=== PATIENT | male | born 1955 | race Caucasian/White ===

== ENCOUNTER 2019-11-08 09:59 | Inpatient (IN) | payer BC ==
[~2019-11-08] VITALS: Ht 172.7 cm; Wt 98.0 kg
[2019-11-08] MEDS ORDERED: SODIUM CHLORIDE 0.9% 1,000 ML IV ONE ×2 (10:19→14:32)
[2019-11-08] MEDS ORDERED: ONDANSETRON HCL 4MG/2ML INJ IV STA (10:19)
[2019-11-08] MEDS ORDERED: KETOROLAC 30MG/ML VIAL IV STA (10:19)
[2019-11-08 11:18] LABS: BASOPHILS % 0.3 % (0.0-2.0); EOSINOPHILS % 1.9 % (0.0-5.0); HEMATOCRIT. 47.2 % (42.0-52.0); LYMPHOCYTES % 18.4 % (20.0-50.0); MEAN CORPUSCULAR HEMOGLOBIN 29.6 pg (28.0-32.0); MEAN CORPUSCULAR VOLUME 87.2 fL (80.0-94.0); MEAN PLATELET VOLUME 8.4 fl (7.4-10.4); MONOCYTES % 11.4 % (2.0-8.0); PLATELET 379 x1000/uL (130-400); RED BLOOD CELL COUNT 5.41 mill/uL (4.7-6.1); RED CELL DISTRIBUTION WIDTH 13.1 % (11.6-14.6)
[2019-11-08 11:19] LABS: CHLORIDE 102 mEq/L (98-107)
[2019-11-08 11:31] LABS: CLARITY URINE CLEAR (CLEAR); COLOR URINE DARK YELLOW (YELLOW); KETONES URINE TRACE (NEGATIVE); LEUKOCYTE ESTERASE URINE NEGATIVE (NEGATIVE); NITRITE URINE NEGATIVE (NEGATIVE); OCCULT BLOOD URINE NEGATIVE (NEGATIVE); PH URINE 5.5 (4.5-8.0); PROTEIN URINE 1+ (NEGATIVE); SPECIFIC GRAVITY URINE 1.026 (1.005-1.030)
[2019-11-08] MEDS ORDERED: AZITHROMYCIN 500 MG in DEXT 5% WATER 250 ML IV ONE (11:45)
[2019-11-08] MEDS ORDERED: CEFTRIAXONE 1 G PREMIX 50 ML IV ONE (11:45)
[2019-11-08 12:16] LABS: D-DIMER 0.82 mg/L FEU (<0.50); PARTIAL THROMBOPLASTIN TIME 30.2 sec (23.4-31.0); PROTHROMBIN TIME 10.8 sec (9.6-11.0)
[2019-11-08] MEDS ORDERED: ENOXAPARIN 80MG/0.8ML SYR SUBCUT ONE (13:00)
[2019-11-08] MEDS ORDERED: DOCUSATE SODIUM 100MG CAPSULE PO PRN (15:30)
[2019-11-08] MEDS ORDERED: ACETAMINOPHEN 325MG TABLET PO PRN (15:30)
[2019-11-08] MEDS ORDERED: HYDRALAZINE 20MG/ML VIAL IV PRN (15:30)
[2019-11-08] MEDS ORDERED: GUAIFENESIN 200MG/10ML SUGAR FREE UDC PO PRN (15:30)
[2019-11-08] MEDS ORDERED: NA PHOS,M-B/NA PHOS,DI-BA ENEMA 118ML PR PRN (15:30)
[2019-11-08] MEDS ORDERED: LORAZEPAM 0.5MG TABLET PO PRN (15:30)
[2019-11-08] MEDS ORDERED: ONDANSETRON HCL 4MG/2ML INJ IV PRN (15:30)
[2019-11-08] MEDS ORDERED: DIPHENHYDRAMINE 50MG/ML VIAL IV PRN (15:30)
[2019-11-08] MEDS ORDERED: CLONIDINE 0.1MG TABLET PO PRN (15:30)
[2019-11-08] MEDS ORDERED: HYDROCODONE/ACETAMINOPHEN 5/325MG TABLET PO PRN (15:30)
[2019-11-08] MEDS ORDERED: IPRATROPIUM/ALBUTEROL 0.5-3(2.5)MG/3ML NEB NEB PRN (15:30)
[2019-11-08] MEDS ORDERED: MAGNESIUM/ALUMINUM HYDROXIDE/SIMETHICONE 30ML UDC PO PRN (15:30)
[2019-11-08] MEDS ORDERED: ACETAMINOPHEN 650MG SUPP PR PRN (15:30)
[2019-11-08 15:52] LABS: BG BASE EXCESS -2.7 mmol/L (-2.0-2.0); BG CARBOXYHEMOGLOBIN 0.8 % (0.5-1.5); BG DEOXYHEMOGLOBIN 5.6 % (0.0-5.0); BG FRACTION INSPIRED OXYGEN 21; BG HCO3 ACT 20.7 mmol/L (22.0-26.0); BG METHEMOGLOBIN 0.3 % (0.0-1.5); BG OXYGEN SATURATION 94.3 % (92.0-98.5); BG OXYHEMOGLOBIN 93.3 % (94.0-97.0); BG PCO2 32.2 mmHg (35.0-45.0); BG PH 7.425 (7.350-7.450); BG PO2 69.9 mmHg (75.0-100.0); BG SAMPLE SITE RIGHT BRACHIAL; BG TOTAL HEMOGLOBIN 15.5 g/dL (12.0-18.0); BG VENT MODE ROOM AIR
[2019-11-08 20:40] VITALS: BP 134/81
[2019-11-08] MEDS: FAMOTIDINE 20MG TABLET PO SCH (21:57)
[2019-11-08] MEDS: ENOXAPARIN 80MG/0.8ML SYR SUBCUT SCH (22:03)
[2019-11-09] VITALS: BP 114/62
[2019-11-09 04:00] VITALS: BP 119/80
[2019-11-09 07:58] LABS: BASOPHILS % 0.4 % (0.0-2.0); EOSINOPHILS % 2.7 % (0.0-5.0); HEMATOCRIT. 43.4 % (42.0-52.0); HEMOGLOBIN. 14.8 g/dL (14.0-18.0); LYMPHOCYTES % 15.7 % (20.0-50.0); MEAN CORPUSCULAR HEMOGLOBIN 29.7 pg (28.0-32.0); MEAN CORPUSCULAR VOLUME 87.1 fL (80.0-94.0); MEAN PLATELET VOLUME 8.2 fl (7.4-10.4); MONOCYTES % 12.9 % (2.0-8.0); NEUTROPHILS % 68.3 % (40.0-76.0); PLATELET 375 x1000/uL (130-400); RED BLOOD CELL COUNT 4.99 mill/uL (4.7-6.1); RED CELL DISTRIBUTION WIDTH 13.1 % (11.6-14.6)
[2019-11-09 08:00] VITALS: BP 107/56
[2019-11-09 08:00] LABS: CHLORIDE 109 mEq/L (98-107)
[2019-11-09 08:20] LABS: T4 FREE 1.08 ng/dL (0.76-1.46)
[2019-11-09 08:23] LABS: HDL CHOLESTEROL 28 mg/dL (40-59); LDL CHOLESTEROL 113 mg/dL (5-100)
[2019-11-09] MEDS ORDERED: ENOXAPARIN 40MG/0.4ML SYR SUBCUT SCH (09:00)
[2019-11-09] MEDS ORDERED: PNEUMOCOCCAL 23-VAL P-SAC VAC 0.5 ML IM ONE (09:00)
[2019-11-09] MEDS ORDERED: AZITHROMYCIN 500 MG in DEXT 5% WATER 250 ML IV SCH (09:00)
[2019-11-09] MEDS: ENOXAPARIN 80MG/0.8ML SYR SUBCUT SCH (09:29)
[2019-11-09] MEDS: AZITHROMYCIN 500 MG in DEXT 5% WATER 250 ML IV SCH (09:31)
[2019-11-09 10:29] LABS: BG BASE EXCESS -2.6 mmol/L (-2.0-2.0); BG CARBOXYHEMOGLOBIN 0.4 % (0.5-1.5); BG DEOXYHEMOGLOBIN 4.6 % (0.0-5.0); BG FRACTION INSPIRED OXYGEN 21; BG HCO3 ACT 20.7 mmol/L (22.0-26.0); BG METHEMOGLOBIN 0.3 % (0.0-1.5); BG OXYGEN SATURATION 95.4 % (92.0-98.5); BG OXYHEMOGLOBIN 94.7 % (94.0-97.0); BG PCO2 32.3 mmHg (35.0-45.0); BG PH 7.425 (7.350-7.450); BG PO2 76.7 mmHg (75.0-100.0); BG SAMPLE SITE RIGHT RADIAL; BG TOTAL HEMOGLOBIN 15.4 g/dL (12.0-18.0); BG VENT MODE ROOM AIR
[2019-11-09 12:00] VITALS: BP 124/73
[2019-11-09] MEDS ORDERED: CEFTRIAXONE 1 G PREMIX 50 ML IV SCH (12:00)
[2019-11-09] MEDS: CEFTRIAXONE 1,000 MG in DEXTROSE 5% WATER 50 ML IV SCH (14:28)
[2019-11-09 16:00] VITALS: BP 118/79
[2019-11-09 20:00] VITALS: BP 109/78
[2019-11-09] MEDS: FAMOTIDINE 20MG TABLET PO SCH (21:03)
[2019-11-09] MEDS: ENOXAPARIN 100MG/ML SYR SUBCUT SCH (21:04)
[2019-11-10] VITALS: BP 119/78
[2019-11-10 04:00] VITALS: BP 127/78
[2019-11-10 08:00] VITALS: BP 119/74
[2019-11-10 08:13] LABS: HEMATOCRIT 42.1 % (42.0-52.0); HEMOGLOBIN 14.4 g/dL (14.0-18.0); MEAN CORPUSCULAR HEMOGLOBIN 29.9 pg (28.0-32.0); MEAN CORPUSCULAR VOLUME 87.1 fL (80.0-94.0); PLATELET 412 x1000/uL (130-400); RED BLOOD CELL COUNT 4.83 mill/uL (4.7-6.1); RED CELL DISTRIBUTION WIDTH 13.1 % (11.6-14.6)
[2019-11-10 08:27] LABS: CHLORIDE 106 mEq/L (98-107)
[2019-11-10] MEDS: ENOXAPARIN 100MG/ML SYR SUBCUT SCH ×2 (09:15→20:47)
[2019-11-10] MEDS: AZITHROMYCIN 500 MG in DEXT 5% WATER 250 ML IV SCH (09:15)
[2019-11-10 12:00] VITALS: BP 123/77
[2019-11-10] MEDS ORDERED: LEVO500T2 MT (13:49)
[2019-11-10] MEDS ORDERED: ALBU90AE INH (13:49)
[2019-11-10] MEDS ORDERED: FAMO-135 PO (13:49)
[2019-11-10] MEDS ORDERED: APIX5TAB MT (13:49)
[2019-11-10] MEDS: CEFTRIAXONE 1,000 MG in DEXTROSE 5% WATER 50 ML IV SCH (14:31)
[2019-11-10 16:00] VITALS: BP 127/79
[2019-11-10 20:00] VITALS: BP 130/80
[2019-11-10] MEDS: FAMOTIDINE 20MG TABLET PO SCH (20:47)
[2019-11-11] VITALS: BP 120/76
[2019-11-11 04:00] VITALS: BP 128/70
[2019-11-11 08:00] VITALS: BP 118/68
[2019-11-11] MEDS ORDERED: AZITHROMYCIN 500 MG TABLET PO SCH (09:00)
[2019-11-11] MEDS: ENOXAPARIN 100MG/ML SYR SUBCUT SCH (09:02)
[2019-11-11 12:00] VITALS: BP 120/73
[2019-11-11] MEDS: CEFTRIAXONE 1,000 MG in DEXTROSE 5% WATER 50 ML IV SCH (14:10)
[2019-11-11 16:00] VITALS: BP 119/71
[2019-11-11 16:09] VITALS: BP 120/73
== END 2019-11-11 17:50 | disposition home or self-care (01) | DRG 177 ==
LOC: ER 09:59 → 7WST 12:35 → EDBEDREQ 12:48 → EDBEDREQTM 12:48 → SUPCPDRO 16:20 → ENRESERV 19:35
PROVIDERS: ADMIT Internal Medicine; ATTEND Internal Medicine
DX: U07.1 COVID-19 (principal); J12.89 Other viral pneumonia; D72.810 Lymphocytopenia; E11.65 Type 2 diabetes mellitus with hyperglycemia; E66.9 Obesity, unspecified; E78.5 Hyperlipidemia, unspecified; R74.0 Nonspecific elevation of levels of transaminase and lactic acid dehydrogenase [LDH]; I10 Essential (primary) hypertension; R09.02 Hypoxemia; Z79.01 Long term (current) use of anticoagulants; Z79.899 Other long term (current) drug therapy; Z68.32 Body mass index [BMI] 32.0-32.9, adult
CPT/HCPCS: 36415; 36600; 71045; 76700; 80048; 80053; 80061; 80076; 81003; 82375; 82805; 83036; 83605; 83880; 84439; 84443; 84484; 85025; 85027; 85379; 85384; 86850; 86900; 93005; 93970; 99285; J0456; J0696; J1650; J1885; J2405; J7030; J7060; C9803-CS; U0003-CS